=== PATIENT | female | born 1995 | race Caucasian/White ===

== ENCOUNTER 2018-12-06 21:58 | Emergency (ER) | payer OTHER ==
[~2018-12-06] VITALS: Ht 162.6 cm; Wt 61.4 kg
[2018-12-06 22:03] VITALS: TEMP 97.8
[2018-12-06] MEDS ORDERED: DEPO-PROVE400 MG/1 M IM (22:05)
[2018-12-06 23:20] VITALS: BP 107/74; PULSE 66
== END 2018-12-06 23:20 | disposition home or self-care (01) ==
LOC: COL.ER 21:58
DX: S63.502A Unspecified sprain of left wrist, initial encounter (principal); W01.0XXA Fall on same level from slipping, tripping and stumbling without subsequent striking against object, initial encounter; Y92.320 Baseball field as the place of occurrence of the external cause; Y93.64 Activity, baseball